=== PATIENT | female | born 1975 | race Asian ===

== ENCOUNTER 2018-08-23 10:11 | Emergency (ER) | payer BC ==
[2018-08-23 10:18] VITALS: BP 157/99
--- NOTE | 2018-08-23 12:39 | UC ---
Lower Extremity/Ankle HPI - HPI Summary HPI Summary: 43 y/o female presents to the urgent care c/o right foot pain and swelling s/p injury on Sunday08/21/2018. Pt reports she was going down the stairs and missed the last step and curled whe RT toes. She applied ice and elevated foot. But yesterday she woke up w/ swelling and had to walked a lot and drive her car in the afternoon and pain increased. Pt is walking w/ mild limping. Pain is 6/ 10 and has not taking anything to alleviate pain. Pt denies fever, numbness or tingling sensation over the Rt foot, calf pain, SOB, chest pain, abdominal pain , N/V/D. - History of Current Complaint Chief Complaint: UCLowerExtremity Stated Complaint: FOOT INJURY Time Seen by Provider: 08/23/18 12:36 Hx Obtained From: Patient Hx Last Menstrual Period: 08/19/18 ?: No Onset/Duration: Gradual Onset, Lasting Days - 2 days, Still Present, Worse Since - today Severity Initially: Moderate Severity Currently: Moderate Pain Intensity: 6 Pain Scale Used: 0-10 Numeric Aggravating Factor(s): Ambulation Alleviating Factor(s): Rest, Elevation Able to Bear Weight: Yes - Risk Factors Gout Risk Factors: Negative DVT Risk Factors: Negative Septic Arthritis Risk Factor: Negative - Allergies/Home Medications Allergies/Adverse Reactions: Allergies Allergy/AdvReac Type Severity Reaction Status Date / Time No Known Allergies Allergy Verified 08/23/18 10:18 PMH/Surg Hx/FS Hx/Imm Hx Previously Healthy: Yes - Pt denies PMHX - Surgical History Surgical History: None - Family History Known Family History: Positive: Hypertension - Social History Occupation: Employed Full-time Lives: With Family Alcohol Use: None Substance Use Type: None Smoking Status (MU): Never Smoked Tobacco Review of Systems All Other Systems Reviewed And Are Negative: Yes Constitutional: Positive: Negative Skin: Positive: Bruising - w/ swelling over the dorsal side of RT foot Eyes: Positive: Negative ENT: Positive: Negative Respiratory: Positive: Negative Cardiovascular: Positive: Negative Gastrointestinal: Positive: Negative Genitourinary: Positive: Negative Motor: Positive: Negative Neurovascular: Positive: Negative Musculoskeletal: Positive: Decreased ROM - RT foot, Other: - RT foot pain s/p fall Neurological: Positive: Negative Psychological: Positive: Negative Is Patient Immunocompromised?: No Physical Exam - Summary Physical Exam Summary: Vital Signs Reviewed: Yes General : well developed, well nourished female w/o any apparent pain or respiratory distress Eyes: Positive: Conjunctiva Clear - PERRLA, EOMI ENT: Positive: Normal ENT inspection, Hearing grossly normal, Pharynx normal, TMs normal Neck: Positive: Supple, Nontender, No Lymphadenopathy Respiratory: Positive: Chest non-tender, Lungs clear, Normal breath sounds, No respiratory distress Cardiovascular: Positive: RRR, No Murmur, Pulses Normal Abdomen Description: Positive: Nontender, No Organomegaly, Soft. Negative: CVA Tenderness (R), CVA Tenderness (L) Bowel Sounds: Positive: Present Musculoskeletal: Positive: Strength Intact, ROM Intact, No Edema, RT- Foot/Toes : Pt is able to bear weight but ambulate with mild limping. RT foot :No surface trauma, positive ecchymosis and soft tissue swelling in the dorsal side at the base of the toes, no erythema, lesions, ulcers or break in skin integrity. The R foot is without obvious asymmetry or deformity when compared to the L foot. No bony step-off, No tenderness to palpation over toes, point tenderness over the dorsal side of distal and base of the 3rd and 4th and 5th metatarsal and sole at the same level, no tenderness of hindfoot, Decrease plantar/dorsiflexion, inversion/eversion due to pain. Distal motor and neurovascular status are intact. Neurological Exam: Normal Psychological Exam: Normal Skin Exam: Normal Triage Information Reviewed: Yes Vital Signs: Initial Vital Signs Temp 97.2 F 08/23/18 10:16 Pulse 88 08/23/18 10:16 Resp 20 08/23/18 10:16 BP 157/99 08/23/18 10:16 Pulse Ox 100 08/23/18 10:16 Lower Extremity Course/Dx - Course Course Of Treatment: 43 y/o female presents to the urgent care c/o right foot pain and swelling s/p injury on Sunday08/21/2018. Pt reports she was going down the stairs and missed the last step and curled whe RT toes. She applied ice and elevated foot. But yesterday she woke up w/ swelling and had to walked a lot and drive her car in the afternoon and pain increased. Pt is walking w/ mild limping. Pain is 6/10 and has not taking anything to alleviate pain. Pt denies fever, numbness or tingling sensation over the Rt foot, calf pain, SOB, chest pain, abdominal pain, N/V/D.Hx obtained. RT foot X-ray ordered, Impression :There was no fracture, dislocation, soft tissue swelling or FB noted. Probably RT foot sprain. Pt's foot immobilized with humberto-bandage and given a post-op shoe to avoid flexion. Advised RICE, and Rx Ibuprofen PO for pain, If not improvement of symptoms to f/u with Orthopedic DR referral for further evaluation and treatment.Pt's BP is elevated today advised to decrease salt in diet, monitor BP and f/u with PCP for further management. Pt understood and agreed with D/C instructions - Differential Dx/Diagnosis Differential Diagnosis/HQI/PQRI: Arthritis, Contusion, Dislocation, Fracture ( Closed), Sprain, Strain, Tendonitis Provider Diagnosis: Right foot pain, Right foot sprain, Elevated BP without diagnosis of hypertension Discharge - Sign-Out/Discharge Documenting (check all that apply): Patient Departure - d/C home All imaging exams completed and their final reports reviewed: Yes - Discharge Plan Condition: Stable Disposition: HOME Prescriptions: Ibuprofen TAB* [Motrin TAB* 600 MG] 600 mg PO Q6H PRN #30 tab PRN Reason: Pain Patient Education Materials: Foot Sprain (ED) Referrals: Yordy Fierro MD [Primary Care Provider] - 1 Week Wilmar Rios MD [Medical Doctor] - 1 Week Additional Instructions: 1-Please take Ibuprofen PO q6-8hrs after meals prn as directed to alleviate pain and swelling. 2-Please apply ice, keep your foot immobilized with the Humberto bandage and post- op shoe. Avoid strenuous exercise or standing for long periods of time. elevate your foot to decrease swelling 3- Please f/u with Orthopedic Dr Rios or your PCP in 1 week if not improvement of symptoms for further evaluation and treatment. 4- Your BP is elevated today. please decrease salt in your diet, monitor BP and if it continues to be elevated please f/u with your PCP for further management. - Billing Disposition and Condition Condition: STABLE Disposition: Home
== END 2018-08-23 13:05 | disposition home or self-care (01) ==
LOC: UCEAST 10:11
DX: S93.601A Unspecified sprain of right foot, initial encounter (principal); X50.1XXA Overexertion from prolonged static or awkward postures, initial encounter; Y92.9 Unspecified place or not applicable; R03.0 Elevated blood-pressure reading, without diagnosis of hypertension
CPT/HCPCS: 99212; G0463